=== PATIENT | male | born 1950 | race Caucasian/White ===

== ENCOUNTER 2016-06-13 14:53 | Inpatient (IN) | payer MEDICARE, BC ==
[~2016-06-13] VITALS: Ht 177.8 cm; Wt 78.2 kg
--- NOTE | 2016-06-13 15:44 | NUR ---
flavor room worker called for evaluation of family/living situation.
--- NOTE | 2016-06-13 16:14 | NUR ---
SHRUTHI met with patient, per SW consult request from [facility] Charles and SOFIA Almonte. Patient was in the ER bed and patient's sister Nancy and friend Aron were also present in the room. Patient is a 66 year old male; he was receptive to meeting with SHRUTHI. SW asked if he consented to his sister and friend being in the room when him and SW met, and patient agreed that they could stay in the room. Patient stated that he and his sister live together in a house. Patient reported having a couple of falls at home last week due to "my legs just got heavy and buckled". Patient reported that the first fall was in his garden last and the second fall was in his bathroom on Sunday. Patient stated that his sister tried to help him get up but that he remained on the floor for a couple of hours because she was not able to help him. Patient reported that they finally called the paramedics to help him up, however he was not brought into the ER on that day. Patient stated that he was not very mobile at home over the past 4 days, and his friend Aron finally brought him into the ER today. SW assessed patient's orientation, and patient was oriented x 4, however patient denied any medical problems (see medical history for accurate information). Patient stated that he usually manages ADL's for him and his sister, but has not been able to lately due to the falls and his limited mobility. Patient's hygiene and grooming were poor, body odor noted, and he had multiple scrapes/bruises on both knees and elbow. No hx of substance abuse. No other family or friends available for help. Patient does not have any children. Per patient's consent, SHRUTHI met with patient's friend Aron, who expressed his concern about patient's ability to take care of himself. SHRUTHI consulted with SOFIA Charles and Dr. Hidalgo, and an APS report will be filed by this SW for inability to take care of self at home, patient is elderly.
[2016-06-13] MEDS ORDERED: IV NORMAL SALINE 1000 ML BAG IV ONE (16:15)
[2016-06-13] MEDS ORDERED: LEVOFLOXACIN 750MG/D5W 150 ML IV ONE ×2 (16:15→16:40)
[2016-06-13 16:43] LABS: BASOPHILS # (AUTO) 0.2 K/uL (0.0-8.0); BASOPHILS % (AUTO) 1.4 % (0.0-2.0); EOSINOPHILS # (AUTO) 0.1 K/uL (0.0-0.7); EOSINOPHILS % (AUTO) 0.4 % (0.0-7.0); HEMATOCRIT 46.5 % (36.7-47.1); HEMOGLOBIN 15.6 g/dL (12.5-16.3); LYMPHOCYTES # (AUTO) 1.1 K/uL (20.0-40.0); LYMPHOCYTES % (AUTO) 8.9 % (20.5-51.5); MEAN CORPUSCULAR HEMOGLOBIN 30.2 uug (23.8-33.4); MEAN CORPUSCULAR HGB CONC 34 g/dL (32.5-36.3); MEAN CORPUSCULAR VOLUME 89.9 fL (73.0-96.2); MONOCYTES # (AUTO) 0.7 K/uL (2.0-10.0); MONOCYTES % (AUTO) 5.4 % (0.0-11.0); NEUTROPHILS # (AUTO) 10.5 K/uL (1.8-8.9); NEUTROPHILS % (AUTO) 83.9 % (38.5-71.5); PLATELET COUNT (AUTO) 350 K/uL (152-348); RED BLOOD CELL COUNT(AUTO) 5.17 MIL/uL (4.06-5.63); RED CELL DISTRIBUTION WIDTH 13.1 % (12.1-16.2); WHITE BLOOD COUNT (AUTO) 12.6 K/uL (3.6-10.2)
--- NOTE | 2016-06-13 16:46 | NUR ---
APS report made by this SW. Report ID # [id number].
[2016-06-13 16:50] LABS: CALCIUM 9.6 mg/dL (8.5-10.1); POTASSIUM 3.7 mmol/L (3.5-5.1)
[2016-06-13 16:56] LABS: ALBUMIN 3.9 g/dL (3.4-5.0); BILIRUBIN,DIRECT 0.2 mg/dL (0.0-0.2); BILIRUBIN,TOTAL 0.8 mg/dL (0.2-1.0); TOTAL PROTEIN, SERUM 7.2 g/dL (6.4-8.2)
[2016-06-13 16:59] LABS: LACTIC ACID 1.1 mmol/L (0.4-2.0)
[2016-06-13] MEDS ORDERED: ONDANSETRON 4 MG/2 ML VIAL IV PRN (17:00)
[2016-06-13] MEDS ORDERED: Z GUARD REMEDY PASTE 57 GM TUBE TOP PRN (17:00)
[2016-06-13] MEDS ORDERED: ACETAMINOPHEN 325 MG TABLET PO PRN (17:00)
[2016-06-13] MEDS ORDERED: MORPHINE SULFATE 2 MG/1 ML DISP.SYRIN IV PRN (17:00)
[2016-06-13 17:04] LABS: THYROID STIMULATING HORMONE 1.792 mIU/mL (0.358-3.740)
[2016-06-13 17:21] LABS: TROPONIN I < 0.017 ng/mL (0.00-0.056)
[2016-06-13 18:01] LABS: *BILIRUBIN,URIN NEGATIVE (NEGATIVE); *BLOOD, URINE NEGATIVE (NEGATIVE); *CLARITY,URINE CLEAR (CLEAR); *COLOR,URINE YELLOW (YELLOW); *KETONES,URINE TRACE (NEGATIVE); *PROTEIN,URINE NEGATIVE (NEGATIVE); *UROBILINOGEN,URINE 0.2 E.U./dl (NORMAL); LEUKOCYTE ESTERASE ,URINE NEGATIVE (NEGATIVE); NITRITE, URINE NEGATIVE (NEGATIVE); PH,URINE 7.5 (5.0-8.0); UGLUCOSE NEGATIVE (NEGATIVE)
[2016-06-13 18:07] LABS: BACTERIA,URINE NONE SEEN /HPF (NONE SEEN); RBC,URINE 0-3 /HPF (0-3); SQUAMOUS EPITHELIAL CELL,UR NONE SEEN /HPF (NONE SEEN); WBC,URINE 0-3 /HPF (0-3)
[2016-06-13] MEDS ORDERED: hydrALAZINE HCL 20 MG/1 ML VIAL IV ONE (18:15)
[2016-06-13] MEDS ORDERED: hydrALAZINE HCL 20 MG/1 ML VIAL ONE (18:20)
[2016-06-13 18:55] VITALS: BP 172/110
--- NOTE | 2016-06-13 18:56 | NUR ---
RECEIVED PT VIA KATIA CARCAMO UPON ADMISSION BP 172/110 AND HR 132. HYDRALYZINE 10MG WAS GIVEN AT 1813 IN ER. IV INTACT AND BOLUS INFUSING, CALL LIGHT IN REACH, FAMILY AT BEDSIDE. MD AWARE OF PT ARRIVAL, ORDERS PLACED, WILL ENDORSE TO TRANSITION OF CARE SPECIALIST
[2016-06-13] MEDS: CLONIDINE HCL 0.1 MG TABLET PO PRN (19:03)
--- NOTE | 2016-06-13 19:21 | NUR ---
PO CLONIDINE 0.1MG GIVEN PER ORDERS FOR SBP >160. WILL ENDORSE TO VENEER PATCHER TO RECHECK BP
--- NOTE | 2016-06-13 19:30 | NUR ---
RECEIVED PT IN BED, RESTING, SISTER AT BEDSIDE. DENIES DISCOMFORT AT THIS TIME. BP ELEVATED REPORTED BY PREVIOUS NURSE, CLONIDINE WAS JUST GIVEN. WILL CONTINUE TO MONITOR. CALL LIGHT WITHIN REACH.
[2016-06-13 20:00] VITALS: BP 172/109
[2016-06-13] MEDS: PIPERACILLIN/TAZOBACTAM/D5W 3.375 G in PREMIXED 1 EACH IV SCH (20:17)
--- NOTE | 2016-06-13 20:30 | NUR ---
nsg: pt received fr grant RN, a/o x 4, denies discomfort. however, bp elevated. see v/s record. tele, ST with hr 120's, afebrile. currently receiving zosyn. on bedrest, had hx of fall 3 days ago, obtained abrasions on left/right elbows, bilateral knees. sister at the bedside. cont to monitor.
[2016-06-13] MEDS ORDERED: METOPROLOL TARTRATE 25 MG TABLET PO SCH (21:00)
[2016-06-13] MEDS ORDERED: METOPROLOL TARTRATE 50 MG TABLET PO SCH (21:00)
[2016-06-13 21:30] VITALS: BP 161/109
[2016-06-13 22:08] VITALS: BP 176/103
[2016-06-13] MEDS: METOPROLOL TARTRATE 5 MG/5 ML VIAL IVP PRN (22:08)
[2016-06-14] VITALS (7 sets, daily range): BP systolic 151–170; BP diastolic 80–106
[2016-06-14] MEDS: CLONIDINE HCL 0.1 MG TABLET PO PRN ×2 (00:15→08:25)
[2016-06-14] MEDS: PIPERACILLIN/TAZOBACTAM/D5W 3.375 G in PREMIXED 1 EACH IV SCH ×2 (05:30→11:55)
--- NOTE | 2016-06-14 06:17 | NUR ---
NSG: all needs attended. v/s stable. denies discomfort. tele, SR. cont to monitor.
[2016-06-14 07:01] LABS: BASOPHILS % (AUTO) 0.4 % (0.0-2.0); EOSINOPHILS # (AUTO) 0.1 K/uL (0.0-0.7); EOSINOPHILS % (AUTO) 1.1 % (0.0-7.0); HEMATOCRIT 42.2 % (36.7-47.1); HEMOGLOBIN 14.4 g/dL (12.5-16.3); LYMPHOCYTES # (AUTO) 1.4 K/uL (20.0-40.0); LYMPHOCYTES % (AUTO) 15.4 % (20.5-51.5); MEAN CORPUSCULAR HEMOGLOBIN 30.9 uug (23.8-33.4); MEAN CORPUSCULAR HGB CONC 34 g/dL (32.5-36.3); MEAN CORPUSCULAR VOLUME 90.4 fL (73.0-96.2); MONOCYTES # (AUTO) 0.7 K/uL (2.0-10.0); MONOCYTES % (AUTO) 8.3 % (0.0-11.0); NEUTROPHILS # (AUTO) 6.7 K/uL (1.8-8.9); NEUTROPHILS % (AUTO) 74.8 % (38.5-71.5); PLATELET COUNT (AUTO) 317 K/uL (152-348); RED BLOOD CELL COUNT(AUTO) 4.66 MIL/uL (4.06-5.63); WHITE BLOOD COUNT (AUTO) 8.9 K/uL (3.6-10.2)
[2016-06-14 07:39] LABS: THYROID STIMULATING HORMONE 2.179 mIU/mL (0.358-3.740)
[2016-06-14 07:48] LABS: ALBUMIN 3.2 g/dL (3.4-5.0); BILIRUBIN,TOTAL 1.4 mg/dL (0.2-1.0); CALCIUM 8.7 mg/dL (8.5-10.1); PHOSPHOROUS 3.2 mg/dL (2.5-4.9); POTASSIUM 3.7 mmol/L (3.5-5.1); TOTAL PROTEIN, SERUM 6.7 g/dL (6.4-8.2)
--- NOTE | 2016-06-14 08:00 | NUR ---
awake, alert and oriented, denies of pain, kept NPO except meds ofr US abdomen, explained plan of care- verbalized understanding, Tele SR 90's, sister at bedside, safety measures maintained, call light within reach
[2016-06-14] MEDS: PANTOPRAZOLE SODIUM 40 MG TABLET.DR PO SCH (08:23)
[2016-06-14] MEDS ORDERED: METOPROLOL TARTRATE 25 MG TABLET PO SCH (09:00)
[2016-06-14] MEDS ORDERED: GADOVERSETAMIDE 2.5 MMOL/5 ML VIAL ONE (10:00)
[2016-06-14] MEDS: METOPROLOL TARTRATE 5 MG/5 ML VIAL IVP PRN (11:37)
[2016-06-14] MEDS ORDERED: AMLODIPINE 5 MG TABLET PO SCH (12:00)
--- NOTE | 2016-06-14 12:10 | NUR ---
seen by Dr García width orders- pt for MRI of brain and c spine- pt informed and in agreement- will let him know of schedule- consent of iv contrast administration signed as well as questionnaire.
--- NOTE | 2016-06-14 13:10 | NUR ---
seen by PT-walked in the hallway width walker- see PT notes, seen by Dr Flores with orders- still with elevated BP, lower extremities weak, sister at bedside
[2016-06-14] MEDS ORDERED: AMLODIPINE 5 MG TABLET PO ONE (13:30)
[2016-06-14] MEDS ORDERED: AMLODIPINE 2.5 MG TABLET PO ONE (13:30)
--- NOTE | 2016-06-14 14:00 | NUR ---
to be picked up by ambulance at 1830 for 1900 MRI at [facility]
--- NOTE | 2016-06-14 14:06 | NUR ---
SPOKE TO NURSE GERONIMO , MRI CHECKLIST AND MRI CONSENT TO BE DONE. SHIP PATIENT AT 6.30PM FOR TABLETIME 7.00PM.ANY CHANGES CALL NICKY [phone].
[2016-06-14] MEDS: LISINOPRIL 10 MG TABLET PO SCH (15:10)
[2016-06-14] MEDS: hydrALAZINE HCL 20 MG/1 ML VIAL IV PRN (15:53)
[2016-06-14] MEDS: LEVOFLOXACIN 500 MG/D5W 500 MG in PREMIXED 1 EACH IV SCH (17:40)
--- NOTE | 2016-06-14 17:58 | NUR ---
resting in bed, BP rechecked, 151/80 HR 118
--- NOTE | 2016-06-14 18:30 | NUR ---
taken by paramedics per isac in stable condition
--- NOTE | 2016-06-14 19:15 | NUR ---
Received report from SOFIA hill. Pt currently out for MRI.
--- NOTE | 2016-06-14 20:30 | NUR ---
Received patient from [facility]edics.Report received from
[2016-06-14] MEDS ORDERED: IOHEXOL 350 100 ML INFUS..BTL ONE ×2 (20:50)
[2016-06-14] MEDS ORDERED: NORMAL SALINE FLUSH 10 ML DISP.SYRIN ONE (20:50)
[2016-06-14] MEDS ORDERED: IV NORMAL SALINE 250 ML IV ONE (20:50)
--- NOTE | 2016-06-14 21:00 | NUR ---
Left for CTA (Angio). Prior to leaving inserted IV line at LAC g 18, w/ good blood return, flushed line with NS.
--- NOTE | 2016-06-14 21:20 | NUR ---
Received pt from CAROLINE. at the bedside.
--- NOTE | 2016-06-14 21:30 | NUR ---
Offerred to be clean, pt is wet from urination but pt refused at this time. Pt got tired from MRI form [facility] and all the test for the whole day.
[2016-06-15] VITALS (7 sets, daily range): BP systolic 140–166; BP diastolic 86–106
--- NOTE | 2016-06-15 | NUR ---
Resting/sleeping comfortably, vitals stable.
--- NOTE | 2016-06-15 04:00 | NUR ---
Pt continued to sleep comfortably, sister at the bedside.VS stable.
--- NOTE | 2016-06-15 06:30 | NUR ---
Changed diaper, cleaned him up, made him comfortable.Pt stated slept well.
--- NOTE | 2016-06-15 07:20 | NUR ---
Report to SOFIA Olea
[2016-06-15 07:33] LABS: ALBUMIN 3.4 g/dL (3.4-5.0); BILIRUBIN,TOTAL 1.2 mg/dL (0.2-1.0); CREATININE 0.9 mg/dL (0.6-1.3); MAGNESIUM 2.2 mg/dL (1.8-2.4); PHOSPHOROUS 3.2 mg/dL (2.5-4.9); POTASSIUM 3.7 mmol/L (3.5-5.1); TOTAL PROTEIN, SERUM 6.9 g/dL (6.4-8.2)
[2016-06-15 07:38] LABS: BASOPHILS % (AUTO) 0.4 % (0.0-2.0); EOSINOPHILS # (AUTO) 0.2 K/uL (0.0-0.7); EOSINOPHILS % (AUTO) 2.4 % (0.0-7.0); HEMATOCRIT 43.7 % (36.7-47.1); HEMOGLOBIN 14.9 g/dL (12.5-16.3); LYMPHOCYTES # (AUTO) 1.6 K/uL (20.0-40.0); LYMPHOCYTES % (AUTO) 16.4 % (20.5-51.5); MEAN CORPUSCULAR HEMOGLOBIN 30.7 uug (23.8-33.4); MEAN CORPUSCULAR HGB CONC 34 g/dL (32.5-36.3); MEAN CORPUSCULAR VOLUME 90.2 fL (73.0-96.2); MONOCYTES # (AUTO) 0.7 K/uL (2.0-10.0); NEUTROPHILS # (AUTO) 7.3 K/uL (1.8-8.9); NEUTROPHILS % (AUTO) 73.8 % (38.5-71.5); PLATELET COUNT (AUTO) 318 K/uL (152-348); RED BLOOD CELL COUNT(AUTO) 4.84 MIL/uL (4.06-5.63); RED CELL DISTRIBUTION WIDTH 13.5 % (12.1-16.2); WHITE BLOOD COUNT (AUTO) 9.8 K/uL (3.6-10.2)
--- NOTE | 2016-06-15 08:00 | NUR ---
awake alert and oriented, denies of pain, tele a fib, explained plan of care=- verbalized understanding. sister at bedside, worries about him, call light within reach
[2016-06-15] MEDS: PANTOPRAZOLE SODIUM 40 MG TABLET.DR PO SCH (08:28)
[2016-06-15] MEDS: LISINOPRIL 10 MG TABLET PO SCH (08:31)
[2016-06-15] MEDS: AMLODIPINE 10 MG TABLET PO SCH (08:31)
[2016-06-15] MEDS ORDERED: AMLODIPINE 5 MG TABLET PO SCH (09:00)
--- NOTE | 2016-06-15 11:00 | NUR ---
seen by PT- ambulated in the hallway- see notes
[2016-06-15] MEDS ORDERED: MAGNESIUM HYDROXIDE 30 ML LIQUID UDC PO PRN (11:15)
[2016-06-15] MEDS: DOCUSATE SODIUM 100 MG CAPSULE PO SCH (11:38)
--- NOTE | 2016-06-15 17:00 | NUR ---
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
[2016-06-15] MEDS: LEVOFLOXACIN 500 MG/D5W 500 MG in PREMIXED 1 EACH IV SCH (17:50)
--- NOTE | 2016-06-15 18:28 | NUR ---
resting in bed, c/o of constipation- med given with prune juice, tele a fib controlled, all needsa ttended and met, safety measures maintained, repositioned q 2h, kept clean and dry at all times, call light within reach
--- NOTE | 2016-06-15 19:30 | NUR ---
nsg: pt awake, alert, no acute distress noted. denies discomfort. tele, SR-ST. cont to monitor.
[2016-06-15] MEDS: MUPIROCIN 2% OINT 22 GM TUBE NS SCH (20:35)
--- NOTE | 2016-06-16 | NUR ---
nsg: no acute distress noted. denies discomfort.
[2016-06-16 05:41] VITALS: BP 148/95
--- NOTE | 2016-06-16 06:00 | NUR ---
nsg: no acute distress noted. denies discomfort. tele, SR-ST. cont to monitor.
[2016-06-16 06:49] LABS: BASOPHILS % (AUTO) 0.4 % (0.0-2.0); EOSINOPHILS # (AUTO) 0.2 K/uL (0.0-0.7); EOSINOPHILS % (AUTO) 2.3 % (0.0-7.0); HEMOGLOBIN 14.4 g/dL (12.5-16.3); LYMPHOCYTES # (AUTO) 1.3 K/uL (20.0-40.0); MEAN CORPUSCULAR HEMOGLOBIN 31.1 uug (23.8-33.4); MEAN CORPUSCULAR HGB CONC 34 g/dL (32.5-36.3); MEAN CORPUSCULAR VOLUME 90.5 fL (73.0-96.2); MONOCYTES # (AUTO) 0.7 K/uL (2.0-10.0); MONOCYTES % (AUTO) 6.9 % (0.0-11.0); NEUTROPHILS # (AUTO) 8.5 K/uL (1.8-8.9); NEUTROPHILS % (AUTO) 78.4 % (38.5-71.5); PLATELET COUNT (AUTO) 295 K/uL (152-348); RED BLOOD CELL COUNT(AUTO) 4.64 MIL/uL (4.06-5.63); RED CELL DISTRIBUTION WIDTH 13.3 % (12.1-16.2); WHITE BLOOD COUNT (AUTO) 10.7 K/uL (3.6-10.2)
[2016-06-16 07:25] LABS: ALBUMIN 3.3 g/dL (3.4-5.0); BILIRUBIN,TOTAL 1.2 mg/dL (0.2-1.0); CALCIUM 8.8 mg/dL (8.5-10.1); CREATININE 0.9 mg/dL (0.6-1.3); MAGNESIUM 2.4 mg/dL (1.8-2.4); PHOSPHOROUS 3.2 mg/dL (2.5-4.9); POTASSIUM 3.7 mmol/L (3.5-5.1); TOTAL PROTEIN, SERUM 6.6 g/dL (6.4-8.2)
--- NOTE | 2016-06-16 08:00 | NUR ---
CONTINUE WITH SAMREEN MONITORING, NO SIGNS OF PAIN OR DISTRESS
[2016-06-16] MEDS: MUPIROCIN 2% OINT 22 GM TUBE NS SCH ×2 (09:13→21:33)
[2016-06-16] MEDS: PANTOPRAZOLE SODIUM 40 MG TABLET.DR PO SCH (09:14)
[2016-06-16] MEDS: DOCUSATE SODIUM 100 MG CAPSULE PO SCH (09:14)
[2016-06-16] MEDS: LISINOPRIL 10 MG TABLET PO SCH ×2 (09:15→21:33)
[2016-06-16] MEDS: AMLODIPINE 10 MG TABLET PO SCH (09:15)
--- NOTE | 2016-06-16 10:32 | NUR ---
This SW received a phone call from [facility] social media assistant Geo [phone] to check on status of patient. SHRUTHI informed Geo that patient is still in the hospital. Geo stated that he will come by today to see the patient.
[2016-06-16 11:09] VITALS: BP 156/99
--- NOTE | 2016-06-16 11:35 | NUR ---
PATIENT STATUS CHANGED TO TELE-SR/ST. NO SIGNS OF DISTRESS
[2016-06-16 15:05] VITALS: BP 152/93
--- NOTE | 2016-06-16 16:44 | NUR ---
Discharge plan: The patient would like to go to [facility] [ ; [address] [place] [address]] once medically cleared. His friend, Aron [ ], toured the facility and chose the placement. Spoke to Tricia [ ; ], admissions from [place], who will review the papers. Updated the charge preparation technician, Delroy, on the situation.
[2016-06-16] MEDS: CLOTRIMAZOLE/BETAMET DIPROP CREAM 15 GM TUBE TOP SCH ×2 (16:55→21:34)
--- NOTE | 2016-06-16 17:10 | NUR ---
NO ACUTE CHANGE PATIENT STATUS CHANGED TO MS
[2016-06-16] MEDS: LEVOFLOXACIN 500 MG/D5W 500 MG in PREMIXED 1 EACH IV SCH (17:45)
--- NOTE | 2016-06-16 19:40 | NUR ---
PATIENT AWAKE ON BED, WATCHING TV. CONTINUING ON CONTACT ISOLATION FOR MRSA OF NARES. WILL CONTINUE TO MONITOR
[2016-06-16] MEDS: CLONIDINE HCL 0.1 MG TABLET PO PRN (19:55)
[2016-06-16 20:00] VITALS: BP_SYST 128; BP_SYST 166; BP_DIAS 107; BP_DIAS 77
--- NOTE | 2016-06-16 20:00 | NUR ---
B/P NOTED 166/107. PRN B/P MEDICATION GIVEN
[2016-06-16 21:00] VITALS: BP 148/96
[2016-06-17 05:19] VITALS: BP 147/96
[2016-06-17 07:32] LABS: ALBUMIN 3.2 g/dL (3.4-5.0); BILIRUBIN,TOTAL 1.1 mg/dL (0.2-1.0); MAGNESIUM 2.2 mg/dL (1.8-2.4); PHOSPHOROUS 3.5 mg/dL (2.5-4.9); POTASSIUM 3.9 mmol/L (3.5-5.1); TOTAL PROTEIN, SERUM 6.7 g/dL (6.4-8.2)
[2016-06-17 07:33] LABS: EOSINOPHILS # (AUTO) 0.2 K/uL (0.0-0.7); EOSINOPHILS % (AUTO) 2.3 % (0.0-7.0); HEMATOCRIT 43.2 % (36.7-47.1); HEMOGLOBIN 15.1 g/dL (12.5-16.3); LYMPHOCYTES # (AUTO) 0.9 K/uL (20.0-40.0); LYMPHOCYTES % (AUTO) 8.7 % (20.5-51.5); MEAN CORPUSCULAR HEMOGLOBIN 31.5 uug (23.8-33.4); MEAN CORPUSCULAR HGB CONC 35 g/dL (32.5-36.3); MONOCYTES # (AUTO) 0.8 K/uL (2.0-10.0); MONOCYTES % (AUTO) 7.5 % (0.0-11.0); NEUTROPHILS # (AUTO) 8.1 K/uL (1.8-8.9); NEUTROPHILS % (AUTO) 81.5 % (38.5-71.5); PLATELET COUNT (AUTO) 264 K/uL (152-348); WHITE BLOOD COUNT (AUTO) 10.1 K/uL (3.6-10.2)
--- NOTE | 2016-06-17 08:00 | NUR ---
IN BED AWAKE ALERT AND ANSWERS QUESTIONS . NO SIGNS OF DISTRESS, DENIES PAIN. CONTINUE CURRENT TX PLAN
[2016-06-17] MEDS: DOCUSATE SODIUM 100 MG CAPSULE PO SCH (08:15)
[2016-06-17] MEDS: LISINOPRIL 10 MG TABLET PO SCH ×2 (08:16→20:09)
[2016-06-17] MEDS: PANTOPRAZOLE SODIUM 40 MG TABLET.DR PO SCH (08:17)
[2016-06-17] MEDS: AMLODIPINE 10 MG TABLET PO SCH (08:17)
[2016-06-17] MEDS: MUPIROCIN 2% OINT 22 GM TUBE NS SCH ×2 (08:17→20:09)
[2016-06-17] MEDS: CLOTRIMAZOLE/BETAMET DIPROP CREAM 15 GM TUBE TOP SCH ×2 (08:18→20:11)
[2016-06-17 11:17] VITALS: BP 141/87
--- NOTE | 2016-06-17 12:00 | NUR ---
NO ACUTE CHANGE
--- NOTE | 2016-06-17 14:34 | NUR ---
NO SIGNS OF DISTRESS, RESTING COMFORTABLY
[2016-06-17 15:45] VITALS: BP 158/92
[2016-06-17] MEDS: LEVOFLOXACIN 500 MG/D5W 500 MG in PREMIXED 1 EACH IV SCH (17:36)
[2016-06-17 20:00] VITALS: BP 170/102
[2016-06-18 04:39] VITALS: BP 166/106
[2016-06-18] MEDS: hydrALAZINE HCL 20 MG/1 ML VIAL IV PRN (05:29)
--- NOTE | 2016-06-18 05:34 | NUR ---
PRN Hydralazine given by RN per MD order for elevated blood pressure of 166/106. Will monitor closely and re-evaluate for effectiveness.
--- NOTE | 2016-06-18 06:57 | NUR ---
PRN Hydralazine given for elevated blood pressure, effective upon re-evaluation. B/P=146/92. Will endorse to oncoming shift nurse.
[2016-06-18 07:04] LABS: ALBUMIN 3.3 g/dL (3.4-5.0); BILIRUBIN,TOTAL 0.9 mg/dL (0.2-1.0); CREATININE 0.8 mg/dL (0.6-1.3); MAGNESIUM 2.2 mg/dL (1.8-2.4); PHOSPHOROUS 3.5 mg/dL (2.5-4.9); POTASSIUM 3.7 mmol/L (3.5-5.1); TOTAL PROTEIN, SERUM 6.9 g/dL (6.4-8.2)
[2016-06-18 07:37] LABS: BASOPHILS % (AUTO) 0.3 % (0.0-2.0); EOSINOPHILS # (AUTO) 0.2 K/uL (0.0-0.7); EOSINOPHILS % (AUTO) 2.4 % (0.0-7.0); HEMATOCRIT 44.6 % (36.7-47.1); LYMPHOCYTES # (AUTO) 0.8 K/uL (20.0-40.0); LYMPHOCYTES % (AUTO) 7.7 % (20.5-51.5); MEAN CORPUSCULAR HEMOGLOBIN 30.6 uug (23.8-33.4); MEAN CORPUSCULAR HGB CONC 34 g/dL (32.5-36.3); MEAN CORPUSCULAR VOLUME 91.3 fL (73.0-96.2); MONOCYTES # (AUTO) 0.7 K/uL (2.0-10.0); MONOCYTES % (AUTO) 6.9 % (0.0-11.0); NEUTROPHILS # (AUTO) 8.5 K/uL (1.8-8.9); NEUTROPHILS % (AUTO) 82.7 % (38.5-71.5); PLATELET COUNT (AUTO) 248 K/uL (152-348); RED BLOOD CELL COUNT(AUTO) 4.88 MIL/uL (4.06-5.63); WHITE BLOOD COUNT (AUTO) 10.2 K/uL (3.6-10.2)
--- NOTE | 2016-06-18 08:00 | NUR ---
RESTING COMFORTABLY WITH PERIODS OF ANXIETY CLOSELY MONITORED, DENIES PAIN AND SOB.
[2016-06-18] MEDS: LISINOPRIL 10 MG TABLET PO SCH (08:29)
[2016-06-18] MEDS: PANTOPRAZOLE SODIUM 40 MG TABLET.DR PO SCH (08:29)
[2016-06-18] MEDS: MUPIROCIN 2% OINT 22 GM TUBE NS SCH (08:30)
[2016-06-18] MEDS: DOCUSATE SODIUM 100 MG CAPSULE PO SCH (08:30)
[2016-06-18] MEDS: AMLODIPINE 10 MG TABLET PO SCH (08:30)
[2016-06-18] MEDS: CLOTRIMAZOLE/BETAMET DIPROP CREAM 15 GM TUBE TOP SCH (08:31)
--- NOTE | 2016-06-18 11:00 | NUR ---
SEEN BY Alondra MARTINEZ WITH DISCHARGE ORDER, CHIP UNLOADER AWARE AND SPOKE WITH PT ABOUT PLAN TO DC TO SNF
[2016-06-18 11:09] VITALS: BP 156/90
[2016-06-18] MEDS ORDERED: LEVOFLOXACIN 500 MG TABLET PO SCH (11:30)
[2016-06-18] MEDS ORDERED: CLON0.1T14 PO (11:37)
[2016-06-18] MEDS ORDERED: PANT40TA2 PO (11:37)
[2016-06-18] MEDS ORDERED: Docusate Sodium PO (11:37)
[2016-06-18] MEDS ORDERED: MUPI22OI2 NS (11:37)
[2016-06-18] MEDS ORDERED: AMLO10TA2 PO (11:37)
[2016-06-18] MEDS ORDERED: MAGN400O4 PO (11:37)
[2016-06-18] MEDS ORDERED: LEVO500T15 PO (11:37)
[2016-06-18] MEDS ORDERED: Lisinopril PO (11:37)
[2016-06-18] MEDS ORDERED: CLOT15CR36 TOP (11:37)
[2016-06-18] MEDS ORDERED: Acetaminophen PO (11:37)
--- NOTE | 2016-06-18 11:49 | NUR ---
The patient will be discharged to [facility] [ ; [address] [place] [address]] via [facility]. Spoke to the patient and he was in agreement and very thankful for the he received in the hospital. He will also call his friend, Aron [ ], and update him on the discharge. Also spoke with Elroy, admitting from [place] and she confirmed that they will admit the patient today and they will also admit his sister, Nancy. His RN, Maren, is aware of his discharge plan and will call the facility for the report.
[2016-06-18] MEDS ORDERED: LEVOFLOXACIN 500 MG/D5W 500 MG in PREMIXED 1 EACH IV SCH (12:30)
[2016-06-18] MEDS ORDERED: RXVAN XX (12:44)
[2016-06-18] MEDS ORDERED: PIPE3.3711 IV ×2 (12:44→12:45)
[2016-06-18] MEDS ORDERED: PIPERACILLIN/TAZOBACTAM/D5W 50 ML IV SCH (12:45)
--- NOTE | 2016-06-18 13:00 | NUR ---
RECEIVED A CALL FROM JAMAR, PT HAS POSITIVE BLOOD CULTURE, RESULTS GIVEN TO JUAN Cantu ELECTRICAL CONTINUITY INSPECTOR WITH ORDERS
[2016-06-18] MEDS: CLONIDINE HCL 0.1 MG TABLET PO PRN (13:12)
--- NOTE | 2016-06-18 13:30 | NUR ---
PATIENT NOTED WITH BP 184/83, FINISHER SPECIAL STOCKS MADE AWARE WITH ORDERS.
[2016-06-18] MEDS ORDERED: LORAZEPAM 2 MG/1 ML VIAL IV PRN (14:00)
--- NOTE | 2016-06-18 15:01 | NUR ---
zosyn and vanco not given, pt is being discharge
[2016-06-18 15:08] VITALS: BP 129/76
[2016-06-18] MEDS ORDERED: LORAZEPAM 0.5 MG TABLET PO PRN (15:15)
--- NOTE | 2016-06-18 16:21 | NUR ---
Clinical Pharmacy Note: Vancomycin Dosing per Pharmacy Subjective: Vancomycin IV to start on this 66 yo male patient for possible bloodstream infection. Objective: BUN 18/Scr 0.8 WBC 10.2 Temperature 98.6 ht 5' 10'' wt 172 lb Assessment/Plan: Will start vancomycin 1250mg IVPB Q12hr for a predicted vancomycin steady state trough level of 15 mcg/ml. Will draw a vancomycin trough level prior to the 4th dose of vancomycin (not ordered yet). Will monitor renal function and adjust vancomycin dose, if needed, should renal function change significantly. Will follow daily. Addendum: 06/18/16 at 1625 by LARRY STOUT PER RN PATIENT IS LEAVING SOON. (NOT ENOUGH TIME TO ADMIN)
--- NOTE | 2016-06-18 16:35 | NUR ---
DISCHARGED TO [facility] VIA AMBULANCE, MEDICATION AND FOLLOW-UP INSTRUCTION GIVEN TO FAMILY
--- NOTE | 2016-06-18 16:38 | NUR ---
ADDITIONAL REPORT GIVEN TO ELIZA
== END 2016-06-18 16:40 | DRG 872 ==
LOC: ER 15:04 → MED 18:23 → TELE 19:10 → TELE-TD 20:10 → TELE 06-16 10:51 → MED 06-16 12:45
PROVIDERS: ADMIT Internal Medicine; ATTEND Internal Medicine
DX: A41.9 Sepsis, unspecified organism (principal); E87.0 Hyperosmolality and hypernatremia; N39.0 Urinary tract infection, site not specified; D68.9 Coagulation defect, unspecified; J98.11 Atelectasis; S80.212A Abrasion, left knee, initial encounter; S80.211A Abrasion, right knee, initial encounter; S50.312A Abrasion of left elbow, initial encounter; S50.311A Abrasion of right elbow, initial encounter; W18.30XA Fall on same level, unspecified, initial encounter; Y93.H2 Activity, gardening and landscaping; Z82.0 Family history of epilepsy and other diseases of the nervous system; Z83.3 Family history of diabetes mellitus; Z82.3 Family history of stroke; Z22.322 Carrier or suspected carrier of Methicillin resistant Staphylococcus aureus; R29.6 Repeated falls; M50.322 Other cervical disc degeneration at C5-C6 level; M50.323 Other cervical disc degeneration at C6-C7 level; M53.2X2 Spinal instabilities, cervical region; Z86.73 Personal history of transient ischemic attack (TIA), and cerebral infarction without residual deficits; E88.09 Other disorders of plasma-protein metabolism, not elsewhere classified; D75.89 Other specified diseases of blood and blood-forming organs; K76.0 Fatty (change of) liver, not elsewhere classified; K59.00 Constipation, unspecified; M25.78 Osteophyte, vertebrae; R73.9 Hyperglycemia, unspecified; Y92.007 Garden or yard of unspecified non-institutional (private) residence as the place of occurrence of the external cause; I11.9 Hypertensive heart disease without heart failure; I07.1 Rheumatic tricuspid insufficiency; K80.20 Calculus of gallbladder without cholecystitis without obstruction; R74.0 Nonspecific elevation of levels of transaminase and lactic acid dehydrogenase [LDH]; E04.1 Nontoxic single thyroid nodule; J32.2 Chronic ethmoidal sinusitis; R21 Rash and other nonspecific skin eruption; M48.02 Spinal stenosis, cervical region
CPT/HCPCS: 36415; 70030-TC; 70450; 70553; 71010; 71275; 72125; 72141; 76700; 83605; 83735; 84100; 84443; 85025; 85730; 87040; 87086; 93005; 93307; 97001; 97116; 97530; A4663; A9579; J0360; J1956; J2060; J2543; J3490; J7030; J7040; J7050; Q9967

== ENCOUNTER 2017-09-10 12:12 | Emergency (ER) | payer MEDICARE, BC ==
[~2017-09-10] VITALS: Ht 177.8 cm; Wt 65.8 kg
[~2017-09-10 12:12] MED LIST: AMLO10TA2 PO; Acetaminophen PO; CLON0.1T14 PO; CLOT15CR36 TOP; Docusate Sodium PO; Lisinopril PO; MAGN400O6 PO; MUPI22OI2 NS; PANT40TA2 PO; PIPE3.3711 IV; RXVAN XX
[2017-09-10 13:08] LABS: BASOPHILS % (AUTO) 0.4 % (0.0-2.0); EOSINOPHILS # (AUTO) 0.1 K/uL (0.0-0.7); EOSINOPHILS % (AUTO) 0.6 % (0.0-7.0); HEMATOCRIT 46.8 % (36.7-47.1); HEMOGLOBIN 15.6 g/dL (12.5-16.3); LYMPHOCYTES % (AUTO) 9.5 % (20.5-51.5); MEAN CORPUSCULAR HEMOGLOBIN 30.4 uug (23.8-33.4); MEAN CORPUSCULAR HGB CONC 33 g/dL (32.5-36.3); MEAN CORPUSCULAR VOLUME 91.3 fL (73.0-96.2); MONOCYTES # (AUTO) 0.6 K/uL (2.0-10.0); NEUTROPHILS # (AUTO) 8.8 K/uL (1.8-8.9); NEUTROPHILS % (AUTO) 83.5 % (38.5-71.5); PLATELET COUNT (AUTO) 374 K/uL (152-348); RED BLOOD CELL COUNT(AUTO) 5.13 MIL/uL (4.06-5.63); WHITE BLOOD COUNT (AUTO) 10.5 K/uL (3.6-10.2)
[2017-09-10 13:25] LABS: CREATININE 1.2 mg/dL (0.6-1.3); POTASSIUM 3.9 mmol/L (3.5-5.1)
[2017-09-10 13:31] LABS: BILIRUBIN,TOTAL 1.3 mg/dL (0.2-1.0); TOTAL PROTEIN, SERUM 7.3 g/dL (6.4-8.2)
--- NOTE | 2017-09-10 13:34 | NUR ---
PATIENT BACK FROM CT PLACE IN ROOM 04A. FAMILY AT [facility].
[2017-09-10 14:04] LABS: *BILIRUBIN,URIN NEGATIVE (NEGATIVE); *BLOOD, URINE NEGATIVE (NEGATIVE); *CLARITY,URINE CLEAR (CLEAR); *COLOR,URINE YELLOW (YELLOW); *KETONES,URINE NEGATIVE (NEGATIVE); *PROTEIN,URINE TRACE (NEGATIVE); *UROBILINOGEN,URINE 0.2 E.U./dl (NORMAL); LEUKOCYTE ESTERASE ,URINE NEGATIVE (NEGATIVE); NITRITE, URINE NEGATIVE (NEGATIVE); UGLUCOSE NEGATIVE (NEGATIVE)
[2017-09-10 14:18] LABS: RBC,URINE 0-3 /HPF (0-3)
[2017-09-10 14:19] LABS: BACTERIA,URINE NONE SEEN /HPF (NONE SEEN); SQUAMOUS EPITHELIAL CELL,UR FEW /HPF (NONE SEEN)
[2017-09-10 14:20] LABS: MUCUS,URINE MODERATE /LPF (0-FEW)
--- NOTE | 2017-09-10 14:30 | NUR ---
Patient is resting comfortably on gurney, NAD, family are at bedside
--- NOTE | 2017-09-10 15:01 | NUR ---
Patient discharged to home in stable conditon with slow steady gait. Written and verbal after care instructions given to patient and family members. Patient and family verbalized understanding of instructions.
== END 2017-09-10 15:02 | disposition home or self-care (01) ==
LOC: ER 12:18
DX: S93.401A Sprain of unspecified ligament of right ankle, initial encounter (principal); R53.1 Weakness; I10 Essential (primary) hypertension; Z79.2 Long term (current) use of antibiotics; Z79.899 Other long term (current) drug therapy; W18.40XA Slipping, tripping and stumbling without falling, unspecified, initial encounter; Y93.89 Activity, other specified; Y92.89 Other specified places as the place of occurrence of the external cause; Y99.8 Other external cause status
CPT/HCPCS: 36415; 70450; 71045; 73600; 73620; 80053; 81001; 82550; 84484; 85025; 93005; 99285; A4663; 70030-TC

== ENCOUNTER 2018-05-27 16:55 | Emergency (ER) | payer MEDICARE, BC ==
[~2018-05-27] VITALS: Ht 177.8 cm; Wt 71.7 kg
[~2018-05-27 16:55] MED LIST changes: -AMLO10TA2 PO; +AMLO10TA7 PO
[2018-05-27] MEDS ORDERED: IV NORMAL SALINE 1000 ML BAG IV ONE (17:30)
[2018-05-27 17:35] LABS: BASOPHILS % (AUTO) 0.5 % (0.0-2.0); EOSINOPHILS # (AUTO) 0.1 K/uL (0.0-0.7); HEMATOCRIT 45.7 % (36.7-47.1); HEMOGLOBIN 15.5 g/dL (12.5-16.3); LYMPHOCYTES # (AUTO) 1.3 K/uL (20.0-40.0); MEAN CORPUSCULAR HEMOGLOBIN 30.7 uug (23.8-33.4); MEAN CORPUSCULAR HGB CONC 34 g/dL (32.5-36.3); MEAN CORPUSCULAR VOLUME 90.6 fL (73.0-96.2); MONOCYTES # (AUTO) 0.5 K/uL (2.0-10.0); MONOCYTES % (AUTO) 6.8 % (0.0-11.0); NEUTROPHILS # (AUTO) 5.9 K/uL (1.8-8.9); NEUTROPHILS % (AUTO) 74.7 % (38.5-71.5); PLATELET COUNT (AUTO) 377 K/uL (152-348); RED BLOOD CELL COUNT(AUTO) 5.05 MIL/uL (4.06-5.63); WHITE BLOOD COUNT (AUTO) 7.9 K/uL (3.6-10.2)
[2018-05-27 17:45] LABS: CREATININE 0.9 mg/dL (0.6-1.3); POTASSIUM 3.6 mmol/L (3.5-5.1)
[2018-05-27 17:51] LABS: BILIRUBIN,DIRECT 0.3 mg/dL (0.0-0.2); BILIRUBIN,TOTAL 1.1 mg/dL (0.2-1.0); TOTAL PROTEIN, SERUM 7.3 g/dL (6.4-8.2)
[2018-05-27 17:58] LABS: THYROID STIMULATING HORMONE 2.632 mIU/mL (0.358-3.740)
--- NOTE | 2018-05-27 18:19 | NUR ---
Pt back from CT, NAD noted.
[2018-05-27 18:40] LABS: *BILIRUBIN,URIN NEGATIVE (NEGATIVE); *BLOOD, URINE NEGATIVE (NEGATIVE); *CLARITY,URINE SLIGHTLY CLOUDY (CLEAR); *COLOR,URINE YELLOW (YELLOW); *KETONES,URINE NEGATIVE (NEGATIVE); *UROBILINOGEN,URINE 0.2 E.U./dl (NORMAL); LEUKOCYTE ESTERASE ,URINE NEGATIVE (NEGATIVE); NITRITE, URINE NEGATIVE (NEGATIVE); UGLUCOSE NEGATIVE (NEGATIVE)
--- NOTE | 2018-05-27 19:03 | NUR ---
Patient discharged to home in stable conditon with sister. Written and verbal after care instructions given. Patient and his sister verbalized understanding of instructions. Stressed f/u with pmd. Pt ambulated out of ER using his walker.
== END 2018-05-27 19:06 | disposition home or self-care (01) ==
LOC: ER 16:55
DX: R53.1 Weakness (principal); I10 Essential (primary) hypertension; Z79.899 Other long term (current) drug therapy
CPT/HCPCS: 36415; 70030-TC; 70450; 71045; 83605; 84443; 85025; 85730; 93005; A4663; J7030

== ENCOUNTER 2023-05-12 19:41 | Inpatient (IN) | payer MEDICARE, BC ==
[~2023-05-12] VITALS: Ht 175.3 cm; Wt 68.1 kg
[~2023-05-12 19:41] MED LIST changes: +AMLO10TA59 PO; -AMLO10TA7 PO; -Acetaminophen PO; -CLON0.1T14 PO; -CLOT15CR36 TOP; -Docusate Sodium PO; -MAGN400O6 PO; -MUPI22OI2 NS; -PANT40TA2 PO; -PIPE3.3711 IV; -RXVAN XX
[2023-05-12] MEDS ORDERED: HYDROMORPHONE 1 MG/1 ML DISP.SYRIN ONE ×2 (20:04→21:19)
[2023-05-12] MEDS ORDERED: ONDANSETRON 4 MG/2 ML VIAL ONE (20:04)
[2023-05-12] MEDS: ONDANSETRON 4 MG/2 ML VIAL IV ONE (20:09)
[2023-05-12] MEDS: HYDROMORPHONE 1 MG/1 ML DISP.SYRIN IV ONE ×2 (20:09→21:24)
[2023-05-12] MEDS: IV NORMAL SALINE 1000 ML BAG IV ONE (20:09)
[2023-05-12 20:11] LABS: BASOPHILS # (AUTO) 0.3 K/UL (0.0-0.2); BASOPHILS % (AUTO) 1.6 % (0.0-2.0); DIFFERENTIAL COMMENT 0; EOSINOPHILS # (AUTO) 0.1 K/uL (0.0-0.7); EOSINOPHILS % (AUTO) 0.4 % (0.0-7.0); HEMATOCRIT 38.4 % (36.7-47.1); HEMOGLOBIN 12.8 g/dL (12.5-16.3); LYMPHOCYTES # (AUTO) 0.4 K/uL (0.8-4.8); LYMPHOCYTES % (AUTO) 2.8 % (20.5-51.5); MEAN CORPUSCULAR HEMOGLOBIN 30.8 uug (23.8-33.4); MEAN CORPUSCULAR HGB CONC 33 g/dL (32.5-36.3); MEAN CORPUSCULAR VOLUME 92.2 fL (73.0-96.2); MONOCYTES # (AUTO) 0.6 K/uL (0.1-1.30); MONOCYTES % (AUTO) 3.6 % (0.0-11.0); NEUTROPHILS # (AUTO) 14.5 K/uL (1.8-8.9); NEUTROPHILS % (AUTO) 91.6 % (38.5-71.5); PLATELET COUNT (AUTO) 345 K/uL (152-348); RED BLOOD CELL COUNT(AUTO) 4.17 MIL/uL (4.06-5.63); RED CELL DISTRIBUTION WIDTH 14.2 % (12.1-16.2); WHITE BLOOD COUNT (AUTO) 15.9 K/uL (3.6-10.2)
[2023-05-12 20:27] LABS: ALANINE AMINOTRANSFERASE 7 U/L (16-63); ALBUMIN 3.9 g/dL (3.4-5.0); ALKALINE PHOSPHATASE 94 U/L (50-136); ASPARTATE AMINOTRANSFERASE 17 U/L (15-37); BILIRUBIN,DIRECT 0.2 mg/dL (0.0-0.2); CALCIUM 9.2 mg/dL (8.5-10.1); CARBON DIOXIDE 22 mmol/L (21-32); CHLORIDE 103 mmol/L (98-107); CREATININE 1.2 mg/dL (0.6-1.3); GLUCOSE 136 mg/dL (74-106); POTASSIUM 3.6 mmol/L (3.5-5.1); SODIUM SERUM 138 mmol/L (136-145); TOTAL PROTEIN, SERUM 7.2 g/dL (6.4-8.2); UREA NITROGEN, BLOOD 25 mg/dL (7-18)
[2023-05-12 22:41] VITALS: BP 129/68; TEMP 97.5; O2SAT 95
[2023-05-12] MEDS: IV D5 1/2 NS 1000 ML 1,000 ML IV PRN (23:47)
[2023-05-12] MEDS: ONDANSETRON 4 MG/2 ML VIAL IV PRN (23:48)
[2023-05-12] MEDS: MORPHINE SULFATE 2 MG/1 ML DISP.SYRIN IV PRN (23:50)
[2023-05-13] VITALS (7 sets, daily range): BP systolic 126–150; BP diastolic 60–85; TEMP 97.5–98.8; O2SAT 97–100
[2023-05-13 02:19] LABS: ANISOCYTOSIS 1+; LYMPHOCYTES % (MANUAL) 2 % (20-40); MONOCYTES % (MANUAL) 3 % (2-10); NEUTROPHILS % (MANUAL) 95 % (42-75); PLATELET ESTIMATE ADEQUATE
[2023-05-13] MEDS ORDERED: AMAN100C16 PO (07:16)
[2023-05-13] MEDS ORDERED: CARB-35 PO (07:16)
[2023-05-13] MEDS ORDERED: AMLO10TA59 PO (07:16)
[2023-05-13] MEDS ORDERED: LISI10TA29 PO (07:16)
[2023-05-13] MEDS ORDERED: ROPI2TAB7 PO (07:24)
[2023-05-13] MEDS ORDERED: ROPI1TAB6 PO (07:24)
[2023-05-13] MEDS ORDERED: HYDR453.3 TP (07:26)
[2023-05-13 07:35] LABS: BASOPHILS % (AUTO) 0.1 % (0.0-2.0); EOSINOPHILS % (AUTO) 0.3 % (0.0-7.0); HEMATOCRIT 39.1 % (36.7-47.1); HEMOGLOBIN 13.7 g/dL (12.5-16.3); LYMPHOCYTES # (AUTO) 0.7 K/uL (0.8-4.8); LYMPHOCYTES % (AUTO) 8.6 % (20.5-51.5); MEAN CORPUSCULAR HEMOGLOBIN 32.4 uug (23.8-33.4); MEAN CORPUSCULAR HGB CONC 35 g/dL (32.5-36.3); MEAN CORPUSCULAR VOLUME 92.1 fL (73.0-96.2); MONOCYTES # (AUTO) 0.5 K/uL (0.1-1.30); NEUTROPHILS # (AUTO) 7.1 K/uL (1.8-8.9); PLATELET COUNT (AUTO) 325 K/uL (152-348); RED BLOOD CELL COUNT(AUTO) 4.24 MIL/uL (4.06-5.63); RED CELL DISTRIBUTION WIDTH 13.8 % (12.1-16.2); WHITE BLOOD COUNT (AUTO) 8.4 K/uL (3.6-10.2)
[2023-05-13 07:48] LABS: DIFFERENTIAL COMMENT 1
[2023-05-13 08:12] LABS: ALBUMIN 3.5 g/dL (3.4-5.0); BILIRUBIN,TOTAL 2.2 mg/dL (0.2-1.0); CREATININE 0.9 mg/dL (0.6-1.3); MAGNESIUM 2.1 mg/dL (1.8-2.4); PHOSPHOROUS 2.2 mg/dL (2.5-4.9); POTASSIUM 3.5 mmol/L (3.5-5.1); TOTAL PROTEIN, SERUM 6.8 g/dL (6.4-8.2)
[2023-05-13] MEDS ORDERED: HYDR12.55 PO (11:27)
[2023-05-13] MEDS ORDERED: CARB1TAB21 PO (11:29)
[2023-05-13 11:41] LABS: *BILIRUBIN,URIN NEGATIVE (NEGATIVE); *CLARITY,URINE CLEAR (CLEAR); *COLOR,URINE YELLOW (YELLOW); *KETONES,URINE NEGATIVE (NEGATIVE); *PROTEIN,URINE NEGATIVE (NEGATIVE); *UROBILINOGEN,URINE 0.2 E.U./dl (NORMAL); LEUKOCYTE ESTERASE ,URINE NEGATIVE (NEGATIVE); NITRITE, URINE NEGATIVE (NEGATIVE); UGLUCOSE NEGATIVE (NEGATIVE)
[2023-05-13 12:07] LABS: *BLOOD, URINE TRACE (NEGATIVE)
[2023-05-13 12:47] LABS: BACTERIA,URINE NONE SEEN /HPF (NONE SEEN); RBC,URINE 0-3 /HPF (0-3); WBC,URINE NONE SEEN /HPF (0-3)
[2023-05-13 12:48] LABS: SQUAMOUS EPITHELIAL CELL,UR NONE SEEN /HPF (NONE SEEN)
[2023-05-14 01:11] VITALS: O2SAT 97
[2023-05-14 05:47] VITALS: BP 146/82; TEMP 98; O2SAT 99
[2023-05-14 08:00] VITALS: BP 150/86; TEMP 98.2; O2SAT 97
[2023-05-14 12:10] VITALS: BP 141/81; TEMP 99.6; O2SAT 98
[2023-05-14] MEDS: ACETAMINOPHEN 650 MG SUPP.RECT RC PRN (12:30)
[2023-05-14] MEDS ORDERED: ACETAMINOPHEN 650 MG SUPP.RECT RC PRN (12:30)
[2023-05-14] MEDS ORDERED: VANCOMYCIN 1000 MG VIAL ONE (13:36)
[2023-05-14] MEDS ORDERED: FENTANYL CITRATE 100 MCG/2 ML AMPUL ONE (14:26)
[2023-05-14] MEDS ORDERED: KETAMINE HCL 500 MG/5 ML VIAL ONE (14:26)
[2023-05-14] MEDS ORDERED: TRANEXAMIC ACID 1,000 MG/10 ML VIAL ONE ×2 (15:00→15:23)
[2023-05-14] MEDS: IV D5W-0.45% NS +20 KCL 1,000 ML IV PRN (18:08)
[2023-05-14 20:36] VITALS: BP 142/77; TEMP 98.8; O2SAT 99
[2023-05-14] MEDS: CEFAZOLIN 1 G in IV DEXTROSE 5% 50 ML IV SCH (21:31)
[2023-05-15] VITALS (8 sets, daily range): BP systolic 121–140; BP diastolic 64–75; TEMP 98.1–102; O2SAT 98–100
[2023-05-15] MEDS: MORPHINE SULFATE 2 MG/1 ML DISP.SYRIN IV PRN (02:43)
[2023-05-15 08:16] LABS: BASOPHILS % (AUTO) 0.1 % (0.0-2.0); EOSINOPHILS % (AUTO) 0.1 % (0.0-7.0); HEMATOCRIT 36.4 % (36.7-47.1); HEMOGLOBIN 12.5 g/dL (12.5-16.3); LYMPHOCYTES # (AUTO) 0.6 K/uL (0.8-4.8); MEAN CORPUSCULAR HEMOGLOBIN 31.3 uug (23.8-33.4); MEAN CORPUSCULAR HGB CONC 34 g/dL (32.5-36.3); MEAN CORPUSCULAR VOLUME 91.5 fL (73.0-96.2); MONOCYTES # (AUTO) 0.8 K/uL (0.1-1.30); MONOCYTES % (AUTO) 8.1 % (0.0-11.0); NEUTROPHILS % (AUTO) 85.7 % (38.5-71.5); PLATELET COUNT (AUTO) 286 K/uL (152-348); RED BLOOD CELL COUNT(AUTO) 3.98 MIL/uL (4.06-5.63); RED CELL DISTRIBUTION WIDTH 14.1 % (12.1-16.2); WHITE BLOOD COUNT (AUTO) 10.5 K/uL (3.6-10.2)
[2023-05-15 08:31] LABS: CALCIUM 9.2 mg/dL (8.5-10.1); CARBON DIOXIDE 24 mmol/L (21-32); CHLORIDE 106 mmol/L (98-107); CREATININE 0.9 mg/dL (0.6-1.3); GLUCOSE 145 mg/dL (74-106); PHOSPHOROUS 2.3 mg/dL (2.5-4.9); POTASSIUM 3.7 mmol/L (3.5-5.1); SODIUM SERUM 140 mmol/L (136-145); UREA NITROGEN, BLOOD 11 mg/dL (7-18)
[2023-05-15 08:32] LABS: DIFFERENTIAL COMMENT 1
[2023-05-15] MEDS: IV NORMAL SALINE 500 ML IV ONE (14:29)
[2023-05-15 15:05] LABS: ALANINE AMINOTRANSFERASE 31 U/L (16-63); ALBUMIN 2.6 g/dL (3.4-5.0); ALKALINE PHOSPHATASE 71 U/L (50-136); ASPARTATE AMINOTRANSFERASE 27 U/L (15-37); BILIRUBIN,TOTAL 1.1 mg/dL (0.2-1.0); CALCIUM 9.1 mg/dL (8.5-10.1); CARBON DIOXIDE 24 mmol/L (21-32); CHLORIDE 107 mmol/L (98-107); CREATININE 0.8 mg/dL (0.6-1.3); GLUCOSE 190 mg/dL (74-106); POTASSIUM 3.8 mmol/L (3.5-5.1); SODIUM SERUM 141 mmol/L (136-145); TOTAL PROTEIN, SERUM 6.2 g/dL (6.4-8.2); UREA NITROGEN, BLOOD 14 mg/dL (7-18)
[2023-05-15 15:15] LABS: BASOPHILS # (AUTO) 0.1 K/UL (0.0-0.2); BASOPHILS % (AUTO) 0.6 % (0.0-2.0); EOSINOPHILS # (AUTO) 0.1 K/uL (0.0-0.7); EOSINOPHILS % (AUTO) 0.6 % (0.0-7.0); HEMATOCRIT 34.4 % (36.7-47.1); HEMOGLOBIN 11.6 g/dL (12.5-16.3); LYMPHOCYTES # (AUTO) 0.7 K/uL (0.8-4.8); LYMPHOCYTES % (AUTO) 6.8 % (20.5-51.5); MEAN CORPUSCULAR HGB CONC 34 g/dL (32.5-36.3); MEAN CORPUSCULAR VOLUME 91.9 fL (73.0-96.2); MONOCYTES # (AUTO) 1.1 K/uL (0.1-1.30); MONOCYTES % (AUTO) 10.1 % (0.0-11.0); NEUTROPHILS # (AUTO) 8.8 K/uL (1.8-8.9); NEUTROPHILS % (AUTO) 81.9 % (38.5-71.5); PLATELET COUNT (AUTO) 267 K/uL (152-348); RED BLOOD CELL COUNT(AUTO) 3.74 MIL/uL (4.06-5.63); RED CELL DISTRIBUTION WIDTH 13.7 % (12.1-16.2); WHITE BLOOD COUNT (AUTO) 10.7 K/uL (3.6-10.2)
[2023-05-15] MEDS: AMLODIPINE 10 MG TABLET PO SCH (16:09)
[2023-05-15] MEDS: ACETAMINOPHEN 325 MG TABLET PO PRN (16:10)
[2023-05-15] MEDS: LISINOPRIL 10 MG TABLET PO SCH (16:10)
[2023-05-15] MEDS: ropiniROLE 1 MG TABLET PO SCH (16:17)
[2023-05-15] MEDS: CARBIDOPA/LEVODOPA 25-100MG TABLET PO SCH (16:17)
[2023-05-15] MEDS: AMANTADINE HCL 100 MG CAPSULE PO SCH (16:23)
[2023-05-15] MEDS: NEUTRA PHOS PACKET PO ONE (17:29)
[2023-05-15] MEDS: HYDROCODONE/APAP 10-325 MG TABLET PO PRN (20:19)
[2023-05-15] MEDS: ropiniROLE 1 MG TABLET PO ONE (21:41)
[2023-05-16 00:17] VITALS: BP 135/69; TEMP 97.5; O2SAT 98
[2023-05-16 04:55] VITALS: BP 135/69; TEMP 98.2; O2SAT 99
[2023-05-16 06:54] LABS: BASOPHILS # (AUTO) 0.1 K/UL (0.0-0.2); BASOPHILS % (AUTO) 0.7 % (0.0-2.0); EOSINOPHILS # (AUTO) 0.3 K/uL (0.0-0.7); EOSINOPHILS % (AUTO) 3.2 % (0.0-7.0); HEMOGLOBIN 11.7 g/dL (12.5-16.3); LYMPHOCYTES # (AUTO) 0.7 K/uL (0.8-4.8); LYMPHOCYTES % (AUTO) 7.4 % (20.5-51.5); MEAN CORPUSCULAR HEMOGLOBIN 31.7 uug (23.8-33.4); MEAN CORPUSCULAR HGB CONC 34 g/dL (32.5-36.3); MEAN CORPUSCULAR VOLUME 92.5 fL (73.0-96.2); MONOCYTES # (AUTO) 1.1 K/uL (0.1-1.30); MONOCYTES % (AUTO) 11.5 % (0.0-11.0); NEUTROPHILS # (AUTO) 7.4 K/uL (1.8-8.9); NEUTROPHILS % (AUTO) 77.2 % (38.5-71.5); PLATELET COUNT (AUTO) 261 K/uL (152-348); RED BLOOD CELL COUNT(AUTO) 3.68 MIL/uL (4.06-5.63); WHITE BLOOD COUNT (AUTO) 9.6 K/uL (3.6-10.2)
[2023-05-16 07:26] LABS: CALCIUM 8.9 mg/dL (8.5-10.1); CARBON DIOXIDE 27 mmol/L (21-32); CHLORIDE 108 mmol/L (98-107); CREATININE 0.8 mg/dL (0.6-1.3); GLUCOSE 121 mg/dL (74-106); MAGNESIUM 1.9 mg/dL (1.8-2.4); PHOSPHOROUS 2.9 mg/dL (2.5-4.9); SODIUM SERUM 142 mmol/L (136-145); UREA NITROGEN, BLOOD 16 mg/dL (7-18)
[2023-05-16 07:31] VITALS: BP 142/59; TEMP 98.2; O2SAT 98
[2023-05-16 07:35] LABS: DIFFERENTIAL COMMENT 1
[2023-05-16] MEDS: HYDROCHLOROTHIAZIDE 12.5 MG CAPSULE PO SCH (08:31)
[2023-05-16 11:49] VITALS: BP 131/70; TEMP 97.8; O2SAT 97
[2023-05-18 08:00] VITALS: BP 138/57; TEMP 97.8; O2SAT 97
[2023-05-18 12:00] VITALS: BP 123/66; TEMP 98.2; O2SAT 97
[2023-05-18 15:57] VITALS: BP 138/80; TEMP 97.6; O2SAT 100
== END 2023-05-16 13:14 | DRG 522 ==
LOC: ER 19:44 → TELE3 21:27
PROVIDERS: ADMIT Nurse Practitioner Acute Care; ATTEND Nurse Practitioner Acute Care
PROC: 0SRS0JA Replacement of Left Hip Joint, Femoral Surface with Synthetic Substitute, Uncemented, Open Approach (ICD-10-PCS; principal; 2023-05-14)
DX: S72.012A Unspecified intracapsular fracture of left femur, initial encounter for closed fracture (principal); W01.0XXA Fall on same level from slipping, tripping and stumbling without subsequent striking against object, initial encounter; Y93.G1 Activity, food preparation and clean up; D75.839 Thrombocytosis, unspecified; I10 Essential (primary) hypertension; K76.0 Fatty (change of) liver, not elsewhere classified; K80.20 Calculus of gallbladder without cholecystitis without obstruction; Y92.000 Kitchen of unspecified non-institutional (private) residence as the place of occurrence of the external cause; I45.10 Unspecified right bundle-branch block; M50.30 Other cervical disc degeneration, unspecified cervical region; D72.829 Elevated white blood cell count, unspecified
CPT/HCPCS: 36415; 70030-TC; 71045; 73501; 73502; 83735; 84100; 85025; 85610; 85730; 86850; 86900; 86901; 93005; 93307; 94760; A4606; A4663; A6209; C1776; G0378; J0690; J1170; J2270; J2405; J3010; J3370; J3490; J7040

== ENCOUNTER 2023-05-16 13:39 | Inpatient (IN) | payer MEDICARE, BC ==
[~2023-05-16] VITALS: Ht 327.7 cm; Wt 68.1 kg
[~2023-05-16 13:39] MED LIST changes: +AMAN100C16 PO; +CARB1TAB21 PO; +HYDR12.55 PO; +HYDR453.3 TP; +LISI10TA29 PO; -Lisinopril PO; +ROPI2TAB7 PO
[2023-05-16] MEDS: ropiniROLE 1 MG TABLET PO SCH (18:10)
[2023-05-16] MEDS: CARBIDOPA/LEVODOPA 25-100MG TABLET PO SCH (18:11)
[2023-05-16] MEDS: LISINOPRIL 10 MG TABLET PO SCH (18:11)
[2023-05-16] MEDS: ENOXAPARIN SODIUM 40 MG/0.4 ML DISP.SYRIN SQ SCH (18:13)
[2023-05-16] MEDS: AMANTADINE HCL 100 MG CAPSULE PO SCH (18:28)
[2023-05-16 20:00] VITALS: BP 131/66; TEMP 98.7; O2SAT 97
[2023-05-16] MEDS: DOCUSATE SODIUM 100 MG CAPSULE PO SCH (21:51)
[2023-05-16] MEDS: HYDROCODONE/APAP 10-325 MG TABLET PO PRN (21:52)
[2023-05-17 06:00] VITALS: BP 131/70; TEMP 97.4; O2SAT 99
[2023-05-17 07:01] LABS: BASOPHILS # (AUTO) 0.1 K/UL (0.0-0.2); BASOPHILS % (AUTO) 0.6 % (0.0-2.0); EOSINOPHILS # (AUTO) 0.5 K/uL (0.0-0.7); EOSINOPHILS % (AUTO) 5.2 % (0.0-7.0); HEMATOCRIT 34.6 % (36.7-47.1); HEMOGLOBIN 12.1 g/dL (12.5-16.3); LYMPHOCYTES # (AUTO) 1.2 K/uL (0.8-4.8); LYMPHOCYTES % (AUTO) 11.7 % (20.5-51.5); MEAN CORPUSCULAR HEMOGLOBIN 31.5 uug (23.8-33.4); MEAN CORPUSCULAR HGB CONC 35 g/dL (32.5-36.3); MEAN CORPUSCULAR VOLUME 90.3 fL (73.0-96.2); MONOCYTES # (AUTO) 1.2 K/uL (0.1-1.30); MONOCYTES % (AUTO) 11.2 % (0.0-11.0); NEUTROPHILS # (AUTO) 7.4 K/uL (1.8-8.9); NEUTROPHILS % (AUTO) 71.3 % (38.5-71.5); PLATELET COUNT (AUTO) 230 K/uL (152-348); RED BLOOD CELL COUNT(AUTO) 3.83 MIL/uL (4.06-5.63); RED CELL DISTRIBUTION WIDTH 13.8 % (12.1-16.2); WHITE BLOOD COUNT (AUTO) 10.3 K/uL (3.6-10.2)
[2023-05-17 07:17] LABS: DIFFERENTIAL COMMENT 1
[2023-05-17 07:21] LABS: CARBON DIOXIDE 24 mmol/L (21-32); CHLORIDE 106 mmol/L (98-107); CREATININE 0.7 mg/dL (0.6-1.3); GLUCOSE 110 mg/dL (74-106); MAGNESIUM 2.1 mg/dL (1.8-2.4); PHOSPHOROUS 3.4 mg/dL (2.5-4.9); POTASSIUM 4.1 mmol/L (3.5-5.1); SODIUM SERUM 140 mmol/L (136-145); UREA NITROGEN, BLOOD 19 mg/dL (7-18)
[2023-05-17] MEDS: AMLODIPINE 10 MG TABLET PO SCH (08:16)
[2023-05-17] MEDS: HYDROCHLOROTHIAZIDE 12.5 MG CAPSULE PO SCH (08:16)
[2023-05-17] MEDS: HYDROCORTISONE 1% CREAM 30 GM TUBE TP SCH (12:34)
[2023-05-17] MEDS: LACTULOSE 20 G/30 ML LIQUID UDC PO ONE (12:49)
[2023-05-17] MEDS: SORBITOL 70% SOLUTION 30 ML UDC PO ONE (12:49)
[2023-05-17] MEDS ORDERED: NALOXONE HCL 0.4 MG/ML AMPUL IV PRN ×2 (14:00)
[2023-05-17] MEDS: OXYCODONE HCL 10 MG TAB.SR.12H PO ONE (14:55)
[2023-05-17 16:08] VITALS: BP 117/68; TEMP 99.1; O2SAT 95
[2023-05-17] MEDS: OXYCODONE HCL 10 MG TAB.SR.12H PO SCH (21:22)
[2023-05-17 21:30] VITALS: BP 127/71; TEMP 97.8; O2SAT 100
[2023-05-18 06:15] VITALS: BP 138/75; TEMP 98.2; O2SAT 99
[2023-05-18] MEDS ORDERED: SENNOSIDES 1 TABLET PO PRN (11:00)
[2023-05-18] MEDS: SENNOSIDES 1 TABLET PO ONE (11:13)
[2023-05-18] MEDS: MAGNESIUM HYDROXIDE 30 ML LIQUID UDC PO ONE (11:13)
[2023-05-18 22:56] VITALS: BP 118/71; TEMP 98.2; O2SAT 100
[2023-05-19 05:41] VITALS: BP 120/78; TEMP 98.2; O2SAT 100
[2023-05-19 15:54] VITALS: BP 114/66; TEMP 97.9; O2SAT 99
[2023-05-20 04:42] VITALS: BP 120/62; TEMP 98.2; O2SAT 99
[2023-05-20 07:10] LABS: BASOPHILS # (AUTO) 0.1 K/UL (0.0-0.2); BASOPHILS % (AUTO) 0.8 % (0.0-2.0); EOSINOPHILS # (AUTO) 0.5 K/uL (0.0-0.7); EOSINOPHILS % (AUTO) 6.6 % (0.0-7.0); HEMATOCRIT 34.2 % (36.7-47.1); LYMPHOCYTES % (AUTO) 12.1 % (20.5-51.5); MEAN CORPUSCULAR HEMOGLOBIN 31.3 uug (23.8-33.4); MEAN CORPUSCULAR HGB CONC 35 g/dL (32.5-36.3); MEAN CORPUSCULAR VOLUME 89.2 fL (73.0-96.2); MONOCYTES # (AUTO) 0.7 K/uL (0.1-1.30); NEUTROPHILS # (AUTO) 5.7 K/uL (1.8-8.9); NEUTROPHILS % (AUTO) 71.5 % (38.5-71.5); PLATELET COUNT (AUTO) 426 K/uL (152-348); RED BLOOD CELL COUNT(AUTO) 3.83 MIL/uL (4.06-5.63); RED CELL DISTRIBUTION WIDTH 13.2 % (12.1-16.2); WHITE BLOOD COUNT (AUTO) 7.9 K/uL (3.6-10.2)
[2023-05-20 07:41] LABS: CARBON DIOXIDE 24 mmol/L (21-32); CHLORIDE 105 mmol/L (98-107); CREATININE 0.8 mg/dL (0.6-1.3); GLUCOSE 104 mg/dL (74-106); MAGNESIUM 2.2 mg/dL (1.8-2.4); PHOSPHOROUS 2.9 mg/dL (2.5-4.9); POTASSIUM 3.7 mmol/L (3.5-5.1); SODIUM SERUM 140 mmol/L (136-145); UREA NITROGEN, BLOOD 23 mg/dL (7-18)
[2023-05-20 07:49] LABS: DIFFERENTIAL COMMENT 1
[2023-05-20] MEDS: ACETAMINOPHEN 325 MG TABLET PO PRN (10:13)
[2023-05-20] MEDS: REMEDY ESSENTIAL ZINC PASTE 113 GM TOP PRN (13:03)
[2023-05-20 16:00] VITALS: BP 107/62; TEMP 97.6; O2SAT 97
[2023-05-20 20:36] VITALS: BP 108/63; TEMP 98; O2SAT 97
[2023-05-21 06:06] VITALS: BP 123/68; TEMP 97.7; O2SAT 99
[2023-05-21 16:00] VITALS: BP 111/51; TEMP 97.6; O2SAT 97
[2023-05-21 19:36] VITALS: BP 115/69; TEMP 97.9; O2SAT 97
[2023-05-22 05:20] VITALS: BP 119/71; TEMP 98.1; O2SAT 96
[2023-05-22 16:00] VITALS: BP 100/61; TEMP 98.7; O2SAT 96
[2023-05-22 20:14] VITALS: BP 106/57; TEMP 97.6; O2SAT 95
[2023-05-22 20:17] VITALS: BP 163/73; TEMP 97.8
[2023-05-23 04:00] VITALS: BP 117/67; TEMP 97.8; O2SAT 95
[2023-05-23 12:00] VITALS: BP 106/66; TEMP 97.2; O2SAT 98
[2023-05-23 17:34] VITALS: BP 125/65; O2SAT 96
[2023-05-23 20:00] VITALS: BP 114/60; TEMP 97.8; O2SAT 96
[2023-05-24 06:00] VITALS: BP 129/77; TEMP 98.4; O2SAT 99
[2023-05-24 16:09] VITALS: BP 119/72; TEMP 97.9; O2SAT 97
[2023-05-24 20:00] VITALS: BP 124/62; TEMP 97.9; O2SAT 99
[2023-05-25 06:00] VITALS: BP 125/69; TEMP 98.1; O2SAT 99
[2023-05-25 15:37] VITALS: BP 108/61; TEMP 98.4; O2SAT 95
[2023-05-25] MEDS: ropiniROLE 1 MG TABLET PO SCH (17:30)
[2023-05-25 21:00] VITALS: BP 109/64; TEMP 98.1; O2SAT 97
[2023-05-26 06:00] VITALS: BP 122/73; TEMP 98.2
[2023-05-26 06:52] LABS: BASOPHILS # (AUTO) 0.1 K/UL (0.0-0.2); BASOPHILS % (AUTO) 1.2 % (0.0-2.0); EOSINOPHILS # (AUTO) 0.5 K/uL (0.0-0.7); EOSINOPHILS % (AUTO) 5.1 % (0.0-7.0); HEMATOCRIT 37.8 % (36.7-47.1); HEMOGLOBIN 12.9 g/dL (12.5-16.3); LYMPHOCYTES # (AUTO) 1.7 K/uL (0.8-4.8); LYMPHOCYTES % (AUTO) 17.8 % (20.5-51.5); MEAN CORPUSCULAR HEMOGLOBIN 30.7 uug (23.8-33.4); MEAN CORPUSCULAR HGB CONC 34 g/dL (32.5-36.3); MONOCYTES # (AUTO) 0.5 K/uL (0.1-1.30); MONOCYTES % (AUTO) 5.6 % (0.0-11.0); NEUTROPHILS # (AUTO) 6.7 K/uL (1.8-8.9); NEUTROPHILS % (AUTO) 70.3 % (38.5-71.5); PLATELET COUNT (AUTO) 652 K/uL (152-348); RED CELL DISTRIBUTION WIDTH 13.6 % (12.1-16.2); WHITE BLOOD COUNT (AUTO) 9.5 K/uL (3.6-10.2)
[2023-05-26 07:07] LABS: DIFFERENTIAL COMMENT 1
[2023-05-26 07:40] LABS: THYROID STIMULATING HORMONE 2.119 mIU/mL (0.358-3.740)
[2023-05-26 07:42] LABS: ALANINE AMINOTRANSFERASE 9 U/L (16-63); ALKALINE PHOSPHATASE 96 U/L (50-136); ASPARTATE AMINOTRANSFERASE 14 U/L (15-37); BILIRUBIN,TOTAL 0.4 mg/dL (0.2-1.0); CALCIUM 9.6 mg/dL (8.5-10.1); CARBON DIOXIDE 30 mmol/L (21-32); CHLORIDE 104 mmol/L (98-107); CHOLESTEROL 166 mg/dL (<200); CREATININE 1.1 mg/dL (0.6-1.3); GLUCOSE 102 mg/dL (74-106); HDL CHOLESTEROL 41 mg/dL (40-60); MAGNESIUM 2.1 mg/dL (1.8-2.4); PHOSPHOROUS 3.1 mg/dL (2.5-4.9); POTASSIUM 4.9 mmol/L (3.5-5.1); SODIUM SERUM 140 mmol/L (136-145); TOTAL PROTEIN, SERUM 6.8 g/dL (6.4-8.2); TRIGLYCERIDES 79 MG/DL (30-150); UREA NITROGEN, BLOOD 21 mg/dL (7-18)
[2023-05-26 10:49] VITALS: BP 136/76; TEMP 97.8; O2SAT 97
[2023-05-26 21:36] VITALS: BP 121/67; TEMP 98.5; O2SAT 98
[2023-05-27 04:26] VITALS: BP 135/76; TEMP 98.1; O2SAT 98
[2023-05-27 08:59] VITALS: BP 141/74; TEMP 98.3; O2SAT 97
[2023-05-27 16:48] VITALS: BP 110/66; TEMP 97.7; O2SAT 95
[2023-05-27 20:05] VITALS: BP 105/67; TEMP 98.7; O2SAT 96
[2023-05-28 04:17] VITALS: BP 106/61; TEMP 97.8; O2SAT 97
[2023-05-28 08:00] VITALS: BP 129/78; TEMP 98.2; O2SAT 98
[2023-05-28 16:00] VITALS: BP 117/73; TEMP 98.6; O2SAT 97
[2023-05-28 20:08] VITALS: BP 113/68; TEMP 98; O2SAT 97
[2023-05-29 05:40] VITALS: BP 123/72; TEMP 97.9; O2SAT 98
[2023-05-29 11:04] VITALS: BP 145/80; TEMP 97.2; O2SAT 99
[2023-05-29 16:21] VITALS: BP 89/54; TEMP 97.7; O2SAT 96
[2023-05-29 20:00] VITALS: BP 120/69; TEMP 97.7; O2SAT 94
[2023-05-30 06:00] VITALS: BP 127/78; TEMP 97.9; O2SAT 100
[2023-05-30 08:00] VITALS: BP 123/68; TEMP 98.8; O2SAT 96
[2023-05-30 16:24] VITALS: BP 96/58; TEMP 98; O2SAT 98
[2023-05-30 20:00] VITALS: BP 110/60; TEMP 98.7; O2SAT 96
[2023-05-31 06:00] VITALS: BP 135/79; TEMP 98.4; O2SAT 96
[2023-05-31 16:16] VITALS: BP 96/55; TEMP 97.5; O2SAT 96
[2023-05-31 21:36] VITALS: BP 132/74; TEMP 98.2; O2SAT 100
[2023-06-01 04:31] VITALS: BP 120/62; TEMP 97.8; O2SAT 100
[2023-06-01 08:22] VITALS: BP 120/62
== END 2023-06-01 15:45 | disposition home health service (06) | DRG 560 ==
PROVIDERS: ADMIT Physical Medicine & Rehabilitation Pain Medicine; ATTEND Physical Medicine & Rehabilitation Pain Medicine
PROC: 0HBRXZZ Excision of Toe Nail, External Approach (ICD-10-PCS; principal; 2023-05-29)
DX: Z47.1 Aftercare following joint replacement surgery (principal); D68.59 Other primary thrombophilia; Z96.642 Presence of left artificial hip joint; I10 Essential (primary) hypertension; W01.0XXD Fall on same level from slipping, tripping and stumbling without subsequent striking against object, subsequent encounter; G20.A1 Parkinson's disease without dyskinesia, without mention of fluctuations; L60.3 Nail dystrophy; M19.90 Unspecified osteoarthritis, unspecified site; R26.2 Difficulty in walking, not elsewhere classified; R53.1 Weakness
CPT/HCPCS: 36415; 73502; 83735; 84100; 84443; 85025; 97535-GO-CO; A6209; A6213; J1650; J7060